=== PATIENT | male | born 1980 | race Caucasian/White ===

== ENCOUNTER 2018-05-08 05:18 | Observation (INO) | payer OTHER ==
[~2018-05-08] VITALS: Ht 188 cm; Wt 101.3 kg
[~2018-05-08 05:18] MED LIST: ANAPROX DS550 M1 PO; PEN-VEE K,VEET500 MG PO; VICODIN,LORT1 TABLET PO
[2018-05-08 05:45] LABS: APPEARANCE CLEAR ((CLEAR)); BILIRUBIN NEGATIVE; BLOOD NEGATIVE; COLOR YELLOW ((YELLOW)); GLUCOSE (STRIP) >=500; KETONES NEGATIVE; LEUKOCYTES NEGATIVE; NITRITE NEGATIVE; PROTEIN (STRIP) NEGATIVE; SPECIFIC GRAVITY 1.021 (1.000-1.030); UCUL ADDED? NO; UROBILINOGEN 0.2 MG/DL (0.2-1.0)
[2018-05-08 05:50] LABS: BASOPHIL (%) 0.3 % (0-1); BASOPHIL COUNT 0.1 K/uL (0-0.1); EOSINOPHIL (%) 0.3 % (0-5); EOSINOPHIL COUNT 0.1 K/uL (0-0.3); HEMATOCRIT 38.4 % (38.0-50.0); HEMOGLOBIN 13.1 G/DL (12.5-16.6); IMMATURE GRANULOCYTE (%) 1.2 % (0.0-0.7); LYMPHOCYTE (%) 3.9 % (15-42); LYMPHOCYTE COUNT 0.8 K/uL (1.0-2.8); MCH 31.3 PG (29.0-34.0); MCHC 34.1 G/DL (30.0-36.0); MCV 91.6 FL (86-99); MONOCYTE (%) 1.5 % (3-12); MONOCYTE COUNT 0.3 K/uL (0-0.8); NEUTROPHIL (%) 92.8 % (45-76); NEUTROPHIL COUNT 18.6 K/uL (1.8-6.4); PLATELET COUNT 285 K/uL (156-360); RBC DIS.WIDTH-CV 13.2 % (11.8-14.6); RBC DIS.WIDTH-SD 43.8 % (39-53); RED BLOOD COUNT 4.19 M/uL (4.00-5.50)
[2018-05-08 05:57] LABS: ALBUMIN 4.4 g/dL (3.2-4.8); CHLORIDE 101 mEq/L (99-109); POTASSIUM 4.9 mEq/L (3.7-5.4); SODIUM 138 mEq/L (136-147)
[2018-05-08 05:59] LABS: TOTAL PROTEIN 7.4 g/dL (6.4-8.3)
[2018-05-08 06:01] LABS: TOTAL BILIRUBIN 0.4 mg/dL (0.0-1.0)
[2018-05-08 06:02] LABS: SERUM ETHYL ALCOHOL < 10 mg/dL
[2018-05-08 06:03] LABS: ALKALINE PHOSPHATASE 111 IU/L (3-129); CREATININE 1.6 mg/dL (0.6-1.3); GFR ESTIMATE (CALCULATED) 52 mL/min/ (58.99-99999)
[2018-05-08 06:03] LABS: AMPHETAMINE NEGATIVE (500 ng/mL); BARBITURATES NEGATIVE (200 ng/mL); BENZODIAZEPINES NEGATIVE (150 ng/mL); BUPRENORPHINE NEGATIVE (10 ng/mL); COCAINE NEGATIVE (150 ng/mL); METHADONE PRESUMPTIVE POSITIVE (200 ng/mL); METHAMPHETAMINE NEGATIVE (500 ng/mL); OPIATES (MORPHINE) NEGATIVE (100 ng/mL); OXYCODONE NEGATIVE (100 ng/mL); PHENCYCLIDINE NEGATIVE (25 ng/mL); PROPOXYPHENE NEGATIVE (300 ng/mL); THC CANNABINOIDS PRESUMPTIVE POSITIVE (50 ng/mL); TRICYCLIC ANTIDEPRESSANTS NEGATIVE (300 ng/mL)
[2018-05-08 06:04] LABS: AST (GOT) 31 IU/L (2-34); UREA NITROGEN (BUN) 21 mg/dL (9-23)
[2018-05-08 06:05] LABS: GLUCOSE 496 mg/dL (70-99)
[2018-05-08 06:06] LABS: ALT (GPT) 41 IU/L (3-49)
[2018-05-08 06:11] LABS: TROP-I INTERPRETATION NEGATIVE; TROPONIN-I 0.03 ng/mL (0.0-0.30)
[2018-05-08 06:12] LABS: CK-MB 2.4 ng/mL (0.0-4.9)
[2018-05-08 07:19] LABS: CKMB RELATIVE INDEX 0.6 (0.0-3.9); CREATINE KINASE 427 IU/L (1-294); TOTAL CK 427 IU/L (1-294)
[2018-05-08 09:58] LABS: HEMATOCRIT 34.1 % (38.0-50.0); HEMOGLOBIN 12.1 G/DL (12.5-16.6); MCH 31.7 PG (29.0-34.0); MCHC 35.5 G/DL (30.0-36.0); MCV 89.3 FL (86-99); PLATELET COUNT 247 K/uL (156-360); RBC DIS.WIDTH-CV 13.2 % (11.8-14.6); RED BLOOD COUNT 3.82 M/uL (4.00-5.50); WHITE BLOOD COUNT 13.4 K/uL (4.1-10.2)
[2018-05-08 10:12] LABS: ALBUMIN 4.1 g/dL (3.2-4.8); CHLORIDE 105 mEq/L (99-109); SODIUM 136 mEq/L (136-147)
[2018-05-08 10:16] LABS: GLUCOSE 79 mg/dL (70-99)
[2018-05-08 10:18] LABS: ALKALINE PHOSPHATASE 94 IU/L (3-129)
[2018-05-08 10:19] LABS: UREA NITROGEN (BUN) 22 mg/dL (9-23)
[2018-05-08 10:20] LABS: AST (GOT) 26 IU/L (2-34)
[2018-05-08 10:21] LABS: ALT (GPT) 35 IU/L (3-49); GFR ESTIMATE (CALCULATED) > 59 mL/min/ (58.99-99999); TOTAL BILIRUBIN 0.3 mg/dL (0.0-1.0); TROP-I INTERPRETATION NEGATIVE; TROPONIN-I 0.15 ng/mL (0.0-0.30)
[2018-05-08 10:24] VITALS: BP 104/55
[2018-05-08 10:27] LABS: CK-MB 2.8 ng/mL (0.0-4.9)
[2018-05-08 12:55] LABS: CKMB RELATIVE INDEX 0.7 (0.0-3.9); CREATINE KINASE 374 IU/L (1-294); TOTAL CK 374 IU/L (1-294)
[2018-05-08 15:41] VITALS: BP 109/67
[2018-05-08 16:34] LABS: TROP-I INTERPRETATION NEGATIVE; TROPONIN-I 0.21 ng/mL (0.0-0.30)
== END 2018-05-08 17:28 | disposition left against medical advice (07) ==
LOC: EME → EDBD 05:18 → EME 05:18 → 4SOUTH 08:23 → EDOF 08:23 → ENRESERV 08:24 → 4SOUTH 10:00
PROVIDERS: Emergency Medicine; Nurse Practitioner Adult Health
DX: T40.3X1A Poisoning by methadone, accidental (unintentional), initial encounter (principal); R41.82 Altered mental status, unspecified; D72.829 Elevated white blood cell count, unspecified; R09.02 Hypoxemia; F12.90 Cannabis use, unspecified, uncomplicated; I44.1 Atrioventricular block, second degree; F11.20 Opioid dependence, uncomplicated; Z82.49 Family history of ischemic heart disease and other diseases of the circulatory system
CPT/HCPCS: 70450; 71045; 80053; 81003; 82550; 82550 91; 82553; 82948; 84484; 84999; 85025; 85027; 93005; 99281; 99285; G0378; G0480; J0295; J7030; J7050